=== PATIENT | female | born 1950 | race Caucasian/White ===

== ENCOUNTER 2016-12-03 15:07 | Emergency (ER) | payer MEDICARE, BC ==
--- NOTE | ~2016-12-03 | ER ---
PATIENT'S NAME: ANGELINA CERVANTES [facility] AGE: 66 Y [address] ROOM: [place] [address] LOCATION: [facility] ADMIT DATE: 12/03/2016 ER/Outpatient Report DISCHARGE DATE: 12/03/2016 FAMILY PHYSICIAN: Art Heller MD ATTENDING PHYSICIAN: Hari Madden CHIEF COMPLAINT: Headache. HISTORY OF PRESENT ILLNESS: The patient has 20+ year history of what she describes as migraine headaches. She has had this current headache for approximately 5 days. She reports that the headaches are becoming more frequent. They are lasting longer and she seems to be having more triggers. There has been no sudden change in her headache. It has been a progressive time frame in which she feels she is getting worse. She was seen here a number of years ago for headache and received an injection that she reports worked at that time, that was Toradol 60 mg and Phenergan 50 mg. she typically takes Advil if the headache is very bad. She takes Sudafed as she believes there is some sinus involvement and she takes sumatriptan. She has taken the sumatriptan as often as she is allowed and continued to have headache. She describes this headache as being on the right side from above her right eye and back to the base of her head. PAST MEDICAL HISTORY: Osteoporosis, anxiety, and migraine headaches. SOCIAL HISTORY: She does not use any tobacco products, any alcohol, or any illicit drugs. ALLERGIES: NO MEDICATION ALLERGIES. MULTIPLE ENVIRONMENTAL AND FOOD ALLERGIES, ALL OF WHICH TRIGGER HEADACHE. HOME MEDICATIONS: Fosamax, trifluoperazine. REVIEW OF SYSTEMS: CONSTITUTIONAL: The patient denies any change in her weight. She denies any fevers, chills, or sweats. HEENT: She complains of right-sided headache for the past five days. She denies any vision changes. No nasal congestion or discharge though she reports being allergic to multiple environmental agents, reporting that when she goes outside, she wears a mask because she is fearful of getting headache from encountering an allergen. She denies any difficulty with speaking or swallowing. PATIENT'S NAME: ANGELINA CERVANTES [facility] AGE: 66 Y [address] ROOM: [place] [address] LOCATION: [facility] ADMIT DATE: 12/03/2016 ER/Outpatient Report DISCHARGE DATE: 12/03/2016 FAMILY PHYSICIAN: Art Heller MD ATTENDING PHYSICIAN: Hari Madden CARDIOVASCULAR: No chest pains. No palpitations. RESPIRATORY: No shortness of breath or cough. GI: No nausea, vomiting, diarrhea, or constipation. No abdominal pain. She does have history of constipation and does not like to take narcotic medications due to this. She denies nausea; however, states when the headache is particularly severe, she does get nausea. She has had loss of appetite. : No complaints. NEURO: She denies any weakness, confusion, dizziness, or any paresthesias. MUSCULOSKELETAL: She has point tenderness over the occiput on the right and also reports that this is where her head hurts in particular in addition to right frontal. HEMATOLOGY: No history of bleeding disorder. SKIN: No new rashes or lesions. ENDOCRINE: No complaints. PSYCH: Depression and anxiety she reports are worse because she has headache all the time. She states she would not have depression if she did not have headaches. PHYSICAL EXAMINATION: VITAL SIGNS: Temperature 96.9, pulse of 84, respiratory rate 20, oxygen saturation 98% on room air, blood pressure 118/64. GENERAL APPEARANCE: Alert and oriented, pink, warm, and dry, in no acute distress. HEENT: Head: Normocephalic. She is tender over the right occiput. There was no tenderness over the temporal artery. No areas of erythema or edema noted. Eyes: PERRL. EOMs Intact. No nystagmus. Ears: TMs pearly choi with light reflex and landmarks easily visible. Nose: Turbinates are pink. No rhinorrhea. Throat: Pharynx is without edema, erythema, or exudate. Uvula is midline. NECK: Supple. No lymphadenopathy. LUNGS: Clear to anterior-posterior auscultation bilaterally. No adventitious lung sounds. Respiratory effort is normal. HEART: Rate is regular. Normal S1, S2. No murmurs noted. ABDOMEN: Soft, nontender, and nondistended. Bowel sounds are present in all 4 quadrants. EXTREMITIES: Without edema. Cap refill is less than 3 seconds. Peripheral pulses are 2+. NEURO: Cranial nerves 2 through 12 are intact. Her motor strength is 5/5 in the upper and lower extremities. Gait is steady. DTRs 2+. No nuchal rigidity. Facial expressions are symmetrical. Tongue protrudes midline. Speech is clear. EMERGENCY DEPARTMENT COURSE: The patient was wanting an injection to help with this headache stating that the last time she was here the injection worked well. She is also wanting names for neurology consult. She feels it is time to see a neurologist. She does become some slightly tearful when talking about staying in the home due PATIENT'S NAME: ANGELINA CERVANTES [facility] AGE: 66 Y [address] ROOM: [place], [place] [address] LOCATION: [facility] ADMIT DATE: 12/03/2016 ER/Outpatient Report DISCHARGE DATE: 12/03/2016 FAMILY PHYSICIAN: Art Heller MD ATTENDING PHYSICIAN: Hari Madden to constantly feeling like she needs to avoid migraine trigger. Toradol 60 mg and Phenergan 50 mg both IM were given as this was the injection the patient received last in the emergency room and felt that it worked well for her. IMPRESSION/ASSESSMENT: Chronic headache. DISPOSITION AND PLAN: The patient is to go home and rest in a quiet dark room. She is to follow up with her primary care provider. She was given name of local neurologist as well as nurse practitioner who specializes in Neurology. She is to follow up and gave recommendations of possible physical therapy, injection, antidepressant to help with chronic pain or perhaps following up with a pain management physician. The patient states she will research these options when she is feeling better and she will definitely follow up with primary care provider. She is to return if she has any increase in her symptoms, any confusion, any weakness, any vomiting, or any other concerns. MARTINEZ MEZA APRN FOR HARI MADDEN MD DP/modl /[id number] d: 12/04/16 0018 t: 12/14/16 1629, OUTPATIENT REPORT
== END 2016-12-03 17:09 | disposition disaster alternative care site (69) ==
LOC: GMED 15:07
DX: G89.29 Other chronic pain (principal); R51 Headache; F41.9 Anxiety disorder, unspecified; M81.0 Age-related osteoporosis without current pathological fracture; Z91.018 Allergy to other foods; Z88.8 Allergy status to other drugs, medicaments and biological substances; Z79.899 Other long term (current) drug therapy; Z90.710 Acquired absence of both cervix and uterus; Z90.89 Acquired absence of other organs; Z98.890 Other specified postprocedural states
CPT/HCPCS: J1885; J2550